=== PATIENT | female | born 1995 | race Caucasian/White ===

== ENCOUNTER 2016-09-18 12:39 | Emergency (ER) | payer OTHER ==
--- NOTE | 2016-09-19 19:43 | ER ---
ADMIT: 09/18/2016 RM/LOC: ER [facility] MR#: [id number] [address] [id number] KEHINDE CROOKS [address] [place] [address] Emergency Room Report SEX: F AGE: 20 : 1995 DATE: 09/18/2016 TIME: 1239 hours. PRIMARY CARE: Dr. Prabhakar. Please refer to my T-sheet for complete H and P. HISTORY OF PRESENT ILLNESS: Briefly, the patient is a 20-year-old, comes in with epigastric chest pain that kind of comes from epigastrium moving up, it also hurts in her back. It can come and go, she may feel a little bit nauseous, no vomiting. Food makes it worse. She has been taking antacids, has not helped, and she is here for evaluation. PHYSICAL EXAMINATION: VITAL SIGNS: Blood pressure 142/90, pulse 94, respirations 24, temp 96.2, and sat 98%. GENERAL: No acute distress. HEENT: Grossly normal. LUNGS: Clear. HEART: Regular. ABDOMEN: Mildly tender epigastrium. No rebound or guarding. SKIN: No rash. EMERGENCY DEPARTMENT COURSE: Her EKG was sinus rhythm, rate 80, no changes. CBC normal. Chemistries normal including liver functions and lipase. D-dimer was normal. We gave her a GI cocktail of Zofran and 1 g of Carafate. She had some improvement. I had a long discussion and she is ready for discharge. ASSESSMENT: Epigastric abdominal pain. PLAN: Continue omeprazole, fluids, return if worse, use Tylenol in addition, and add Carafate and follow up with Dr. Prabhakar this week. Arturo Mcmillan MD/ cecil JOB #: [id number] CC: Iain Dean MD, Attending Physician Marcio Prabhakar MD, Family Physician
== END 2016-09-18 14:55 | disposition home or self-care (01) ==
LOC: ER 12:39
DX: R10.13 Epigastric pain (principal); K21.9 Gastro-esophageal reflux disease without esophagitis; Z90.89 Acquired absence of other organs